=== PATIENT | female | born 1965 | race Caucasian/White ===

== ENCOUNTER 2018-11-11 11:02 | Emergency (ER) | payer SELFPAY ==
[~2018-11-11] VITALS: Ht 157.5 cm; Wt 63.6 kg
[2018-11-11 11:18] VITALS: Ht 157.5 cm; Wt 63.6 kg
[2018-11-11] MEDS ORDERED: NEURONTIN 300300 MG PO (11:20)
[2018-11-11] MEDS ORDERED: TAMOXIFEN CITRA20 MG (11:20)
[2018-11-11] MEDS ORDERED: ROBAXIN500 MG PO ×2 (12:37→12:39)
[2018-11-11] MEDS ORDERED: TORADOL10 MG PO (12:38)
[2018-11-11 13:03] VITALS: BP 119/80
== END 2018-11-11 13:02 | disposition home or self-care (01) ==
LOC: D.ER 11:02
DX: M54.16 Radiculopathy, lumbar region (principal); S39.012A Strain of muscle, fascia and tendon of lower back, initial encounter